=== PATIENT | female | born 1975 | race Caucasian/White ===

== ENCOUNTER → 2017-06-23 | Outpatient (CLI) | payer OTHER ==
[2004-05-21 01:44] VITALS: TEMP 98.3
[~2017-06-23] MED LIST: BENADRYL; CLINDAMYCIN HC150 MG PO
== END ==
LOC: MC.RAD 12:31
DX: N60.02 Solitary cyst of left breast (principal)

== ENCOUNTER 2017-11-02 10:17 | Day surgery (SDC) | payer OTHER ==
[~2017-11-02] VITALS: Ht 175.3 cm; Wt 103.6 kg
[2017-11-02 10:42] VITALS: BP 132/108; PULSE 73; TEMP 98.3
[2017-11-02] MEDS ORDERED: PRILOSEC 20MG20 MG PO (12:09)
[2017-11-02 12:10] VITALS: BP 132/107; PULSE 99; TEMP 98.4
[2017-11-02 12:25] VITALS: BP 127/96; PULSE 95
[2017-11-02 12:40] VITALS: BP 126/91; PULSE 90
== END 2017-11-02 13:03 | disposition home or self-care (01) ==
LOC: SDCO 10:17
DX: K21.9 Gastro-esophageal reflux disease without esophagitis (principal); K29.50 Unspecified chronic gastritis without bleeding; K44.9 Diaphragmatic hernia without obstruction or gangrene; Z86.32 Personal history of gestational diabetes; F41.9 Anxiety disorder, unspecified; Z79.899 Other long term (current) drug therapy
CPT/HCPCS: OP; J2250; J2405; J3010; J7030

== ENCOUNTER → 2020-03-22 | Outpatient (CLI) | payer BC ==
[~2020-03-22] MED LIST changes: +PRILOSEC 20MG20 MG PO
== END ==
LOC: MC.RAD 09:32
DX: Z12.31 Encounter for screening mammogram for malignant neoplasm of breast (principal); N63.10 Unspecified lump in the right breast, unspecified quadrant

== ENCOUNTER → 2020-03-29 | Outpatient (CLI) | payer BC | LOC: MC.RAD 07:00 | DX: N60.01 Solitary cyst of right breast (principal) ==